=== PATIENT | female | born 1995 | race African-American/Black ===

== ENCOUNTER 2024-08-23 08:07 | Emergency (ER) | payer OTHER ==
[~2024-08-23] VITALS: Ht 170.2 cm; Wt 81.8 kg
[2024-08-23 08:10] VITALS: TEMP 98
[2024-08-23 08:32] LABS: ALCOHOL, URINE DRUG SCREEN NEGATIVE (NEGATIVE); AMPHET/METH SCREEN,URINE NEGATIVE (NEGATIVE); BARBITURATE SCREEN, URINE NEGATIVE (NEGATIVE); BENZODIAZEPINES SCREEN,URINE NEGATIVE (NEGATIVE); CANNABINOID SCREEN,URINE NEGATIVE (NEGATIVE); COCAINE SCREEN,URINE NEGATIVE (NEGATIVE); METHADONE SCREEN, URINE NEGATIVE (NEGATIVE); OPIATE SCREEN,URINE NEGATIVE (NEGATIVE); PHENCYCLIDINE SCREEN,URINE NEGATIVE (NEGATIVE)
[2024-08-23] MEDS: SODIUM CHLORIDE 0.9% 1,000 ML IV ONE (08:44)
[2024-08-23] MEDS: KETOROLAC TROMETHAMINE 30 MG/ML VIAL IVP ONE (08:44)
[2024-08-23 10:29] VITALS: BP 116/84; PULSE 85; RESP 16; O2SAT 99
== END 2024-08-23 10:29 | disposition home or self-care (01) ==
LOC: EMS 08:07
DX: R51.9 Headache, unspecified (principal)
CPT/HCPCS: 99283; 96374; 96361; 80307; J1885; J7030